=== PATIENT | female | born 1950 | race Caucasian/White ===

== ENCOUNTER 2019-06-28 06:43 | Day surgery (SDC) | payer OTHER ==
[~2019-06-28] VITALS: Ht 160 cm; Wt 103.3 kg
[~2019-06-28 06:43] MED LIST: AMLO5 PO; CETI10; FLUO10; HYDCHL12.5; LISI20; LITH300ER; LORA1 PO; POTCHL20ER PO; QUIN260; VENL75ER PO; Zantac150 MG PO; Zofran Odt8 MG SL
== END 2019-06-28 08:50 | disposition home or self-care (01) ==
LOC: ORSCSDS 06:43
PROVIDERS: Surgery
PROC: 0DJD8ZZ Inspection of Lower Intestinal Tract, Via Natural or Artificial Opening Endoscopic (ICD-10-PCS; principal; 2019-06-28 08:00)
DX: Z12.11 Encounter for screening for malignant neoplasm of colon (principal); K57.30 Diverticulosis of large intestine without perforation or abscess without bleeding; Z86.010 Personal history of colon polyps; I10 Essential (primary) hypertension; E78.5 Hyperlipidemia, unspecified; F41.8 Other specified anxiety disorders; G51.0 Bell's palsy; Z79.899 Other long term (current) drug therapy
CPT/HCPCS: J0330; J0461; J2405; J2704; J7120

== ENCOUNTER → 2020-07-16 | Outpatient (CLI) | payer OTHER ==
[2020-07-19 07:10] LABS: LYME IGG/IGM AB <0.91 ISR (0.00-0.90)
== END | disposition home or self-care (01) ==
LOC: LAB SHORT 13:52 → LAB 13:52
PROVIDERS: Physician Assistant
DX: R53.83 Other fatigue (principal); R19.7 Diarrhea, unspecified
CPT/HCPCS: 86618

== ENCOUNTER 2020-09-15 03:50 | Emergency (ER) | payer OTHER ==
[~2020-09-15] VITALS: Ht 160 cm; Wt 102.1 kg
[2020-09-15] MEDS ORDERED: ONDA4ODT MM (08:37)
== END 2020-09-15 10:30 | disposition home or self-care (01) ==
LOC: ER 03:50
DX: U07.1 COVID-19 (principal); I10 Essential (primary) hypertension; Z88.0 Allergy status to penicillin; Z88.5 Allergy status to narcotic agent
CPT/HCPCS: 96361; 96374; 99284-25; J2405; J7030